=== PATIENT | female | born 1945 | race Hispanic/Latino ===

== ENCOUNTER 2021-10-25 08:12 | Emergency (ER) | payer BC, MEDICARE ==
[2021-10-25 08:59] VITALS: BP 137/71
--- NOTE | 2021-10-25 20:17 | Electrocardiograph Report ---
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
== END 2021-10-25 11:54 | disposition left against medical advice (07) ==
LOC: ED 08:12
DX: R10.9 Unspecified abdominal pain (principal); K59.00 Constipation, unspecified; Z53.21 Procedure and treatment not carried out due to patient leaving prior to being seen by health care provider
CPT/HCPCS: 93005